=== PATIENT | female | born 1995 | race Two or more races ===

== ENCOUNTER 2024-04-11 06:29 | Inpatient (IN) | payer SELFPAY ==
[2024-04-11 07:27] LABS: APPEARANCE,URINE HAZY; BILIRUBIN,URINE NEGATIVE (NEGATIVE); COLOR,URINE YELLOW; GLUCOSE,URINE NEGATIVE (NEGATIVE); KETONES,URINE 40 mg/dL (NEGATIVE); PROTEIN,URINE 30 mg/dL (NEGATIVE)
[2024-04-11 07:28] LABS: LEUKOCYTE ESTERASE,URINE NEGATIVE (NEGATIVE); NITRITE,URINE NEGATIVE (NEGATIVE); OCCULT BLOOD,URINE TRACE-INTACT (NEGATIVE); UROBILINOGEN,URINE 0.2 EU/dL (<2.0)
[2024-04-11 07:34] LABS: BASOPHILS ABSOLUTE AUTO 0.02 K/uL (0.00-0.20); BASOPHILS PERCENT AUTO 0.2 % (0.0-1.0); HEMATOCRIT 33.6 % (37.0-47.0); HEMOGLOBIN 11.4 g/dL (12.0-16.0); IMMATURE GRAN ABSOLUTE AUTO 0.04 K/uL (0.00-0.05); IMMATURE GRAN PERCENT AUTO 0.4 % (0.0-0.4); LYMPHOCYTES ABSOLUTE AUTO 0.72 K/uL (1.00-4.80); LYMPHOCYTES PERCENT AUTO 7.8 % (24.0-44.0); MEAN CORPUSCULAR HEMOGLOBIN 29.4 pg (28.0-32.0); MEAN CORPUSCULAR HGB CONC 33.9 g/dL (32.0-36.0); MEAN CORPUSCULAR VOLUME 86.6 fL (83.0-99.0); MEAN PLATELET VOLUME 10.1 fL (9.4-12.3); MONOCYTES ABSOLUTE AUTO 0.67 K/uL (0.00-0.80); MONOCYTES PERCENT AUTO 7.2 % (0.0-8.0); NEUTROPHILS ABSOLUTE AUTO 7.81 K/uL (1.80-7.70); NEUTROPHILS PERCENT AUTO 84.4 % (41.0-71.0); PLATELET COUNT,PLT 217 K/uL (150-400); RED BLOOD CELL COUNT 3.88 M/uL (4.10-5.30); WHITE BLOOD CELL COUNT,WBC 9.26 K/uL (3.9-11.3)
[2024-04-11 07:48] LABS: CORONAVIRUS COVID-19 NAA NEGATIVE (NEGATIVE); INFLUENZA A NAA POSITIVE (NEGATIVE); INFLUENZA B NAA NEGATIVE (NEGATIVE)
[2024-04-11] MEDS: Acetaminophen/Butalbital/Caffeine 325-50-40 MG Tab PO ONE (07:50)
[2024-04-11 07:58] LABS: A/G RATIO 0.6 (0.9-1.6); ALBUMIN 2.7 g/dL (3.4-5.0); BILIRUBIN TOTAL 0.4 mg/dL (0.2-1.0); CALCIUM 8.6 mg/dL (8.5-10.1); CARBON DIOXIDE,CO2 22.3 mmol/L (21.0-32.0); CREATININE 0.7 mg/dL (0.6-1.0); EST CRCL DRUG DOSING (CG) 99.86 mL/min; POTASSIUM,K 3.9 mmol/L (3.5-5.1); PROTEIN TOTAL,TP 7.6 g/dL (6.4-8.2)
[2024-04-11 08:21] LABS: CREATININE,URINE RAND 119.9 mg/dL; PROTEIN CREATININE RATIO,URINE 0.6; PROTEIN,URINE RANDOM 67.6 mg/dL (<11.9)
[2024-04-11] MEDS ORDERED: Misoprostol 200 MCG Tab PO PRN (08:47)
[2024-04-11] MEDS ORDERED: Tranexamic Acid in NACL,ISO-OS 1,000 MG in Premix Bag 1 BAG IV PRN (08:47)
[2024-04-11] MEDS ORDERED: Misoprostol 200 MCG Tab RECTAL PRN ×2 (08:47→13:39)
[2024-04-11] MEDS ORDERED: Methylergonovine 0.2 MG/1 ML Amp IM PRN ×2 (08:47→13:39)
[2024-04-11] MEDS ORDERED: Carboprost Tromethamine 250 MCG/1 mL Vial IM PRN (08:47)
[2024-04-11] MEDS ORDERED: Sodium Chloride 0.9% 10 ML Syringe FLUSH PRN (08:47)
[2024-04-11] MEDS ORDERED: Water For Irrigation,Sterile 1,000 ML Container IRR PRN (08:47)
[2024-04-11] MEDS ORDERED: Sodium Chloride 0.9% 2.5 ML Syringe FLUSH PRN (08:47)
[2024-04-11] MEDS ORDERED: Sodium Chloride 0.9% 20 ML SDV IV PRN (08:47)
[2024-04-11] MEDS ORDERED: dexmedeTOMIDine HCl 200 MCG/2 ML SDV ONE (08:52)
[2024-04-11] MEDS ORDERED: Ropivacaine 0.5% 5 MG/ML 30 ML SDV ONE (08:52)
[2024-04-11] MEDS ORDERED: Tranexamic Acid 1,000 MG/10 ML Vial ONE (08:52)
[2024-04-11] MEDS ORDERED: Ondansetron 4 MG/2 ML SDV ONE (08:52)
[2024-04-11] MEDS ORDERED: Sodium Chloride 0.9% 20 ML ONE (08:52)
[2024-04-11] MEDS ORDERED: Phenylephrine 1% 10 MG/ML SDV ONE (08:52)
[2024-04-11] MEDS ORDERED: ceFAZolin 2 GM Vial ONE (08:52)
[2024-04-11] MEDS ORDERED: Oxytocin 10 Units/1 ML SDV ONE ×2 (08:52→12:25)
[2024-04-11] MEDS ORDERED: Dexamethasone 4 MG/ML 5 ML MDV ONE (08:52)
[2024-04-11] MEDS ORDERED: ePHEDrine 50 MG/ML SDV ONE (08:52)
[2024-04-11] MEDS ORDERED: fentaNYL 100 MCG/2 ML SDV ONE (08:53)
[2024-04-11] MEDS ORDERED: Morphine PF 10 MG/10 ML SDV ONE (08:53)
[2024-04-11] MEDS ORDERED: Oxytocin/0.9 % Sodium Chloride 30 UNIT/500 ML BAG IV SCH (09:00)
[2024-04-11] MEDS ORDERED: Lactated Ringers 1,000 ML IV SCH ×2 (09:00→13:45)
[2024-04-11] MEDS ORDERED: Phenylephrine HCl In 0.9% NaCl 1 MG/10 ML Syringe IVPUSH PRN (09:37)
[2024-04-11] MEDS ORDERED: HYDROmorphone 1 MG/ML Syringe IVPUSH PRN (09:37)
[2024-04-11] MEDS ORDERED: diphenhydrAMINE 50 MG/ML SDV IVPUSH PRN ×2 (09:37→13:39)
[2024-04-11] MEDS ORDERED: Metoclopramide 10 MG/2 ML SDV IVPUSH PRN (09:37)
[2024-04-11] MEDS ORDERED: fentaNYL 100 MCG/2 ML SDV IVPUSH PRN (09:37)
[2024-04-11] MEDS ORDERED: Morphine 2 MG/ML SYRINGE IVPUSH PRN (09:37)
[2024-04-11] MEDS ORDERED: Acetaminophen/oxyCODONE 325-5 MG Tab PO PRN ×2 (09:37→13:39)
[2024-04-11] MEDS ORDERED: Ondansetron 4 MG/2 ML SDV IVPUSH PRN ×3 (09:37→13:39)
[2024-04-11] MEDS ORDERED: Nalbuphine 10 MG/1 ML Vial IVPUSH PRN (09:37)
[2024-04-11] MEDS ORDERED: Naloxone 0.4 MG/ML SDV IVPUSH PRN ×2 (09:37→13:39)
[2024-04-11] MEDS ORDERED: fentaNYL 50 MCG/ML SDV IVPUSH PRN (09:37)
[2024-04-11] MEDS ORDERED: Albuterol 0.083% 2.5 MG/3 ML Neb Soln NEB PRN (09:37)
[2024-04-11] MEDS: Lactated Ringers 1,000 ML IV SCH (11:40)
[2024-04-11] MEDS ORDERED: Bisacodyl 10 MG Supp RECTAL PRN (13:39)
[2024-04-11] MEDS ORDERED: Oxytocin 10 Units/1 ML SDV IM PRN (13:39)
[2024-04-11] MEDS: Ketorolac 30 MG/ML SDV IVPUSH SCH (16:14)
[2024-04-11] MEDS: Acetaminophen 1,000 MG in Premix Bag 1 BAG IV SCH (17:50)
[2024-04-11] MEDS: Citric Acid/Sodium Citrate Solution 30 ML Cup PO ONE (19:52)
[2024-04-11] MEDS: Docusate Sodium 100 MG Cap PO SCH (22:12)
[2024-04-12 06:11] LABS: HEMATOCRIT 30.1 % (37.0-47.0); HEMOGLOBIN 9.8 g/dL (12.0-16.0)
[2024-04-12] MEDS: Lanolin 100% Cream 7 GM Tube TOP PRN (20:23)
[2024-04-12] MEDS: Ibuprofen 800 MG Tab PO PRN (20:23)
[2024-04-12] MEDS: Codeine/Promethazine 10-6.25 MG/5 ML Syrup 5 ML UD Syringe PO PRN (21:58)
[2024-04-14] MEDS: Acetaminophen/oxyCODONE 325-5 MG Tab PO PRN (04:14)
[2024-04-14] MEDS: Measles, Mumps & Rubella Vaccine 0.5 ML SDV SUBCUT ONE (19:57)
== END 2024-04-14 21:26 | disposition home or self-care (01) | DRG 787 ==
LOC: MW.OBCHECK 06:29 → MW.OB 06:30 → OBSVTOIN 08:48 → MW.OB 08:48 → MW.OBCHECK 08:48 → MW.OB 12:30
PROVIDERS: ADMIT Obstetrics & Gynecology Obstetrics; ATTEND Obstetrics & Gynecology Obstetrics
PROC: 10D00Z1 Extraction of Products of Conception, Low, Open Approach (ICD-10-PCS; principal; 2024-04-11)
PROC: 3E0234Z Introduction of Serum, Toxoid and Vaccine into Muscle, Percutaneous Approach (ICD-10-PCS; 2024-04-11)
DX: O98.52 Other viral diseases complicating childbirth (principal); O12.13 Gestational proteinuria, third trimester; O34.219 Maternal care for unspecified type scar from previous cesarean delivery; J10.1 Influenza due to other identified influenza virus with other respiratory manifestations; O99.02 Anemia complicating childbirth; Z3A.38 38 weeks gestation of pregnancy; Z79.899 Other long term (current) drug therapy; Z37.0 Single live birth; Z23 Encounter for immunization
CPT/HCPCS: 01961; 0240U; 36415; 64999; 80053; 81003; 82570; 84156; 85014; 85018; 85025; 86592; 86850; 86900; 86901; 90471; 90707; A9270-GY; J0131; J0690; J1100; J1885; J2274; J2371; J2405; J2590; J2795; J3010; J3490; J7120